=== PATIENT | male | born 1990 | race Caucasian/White ===

== ENCOUNTER 2018-08-02 18:23 | Emergency (ER) | payer BC ==
[~2018-08-02] VITALS: Ht 175.3 cm; Wt 83.0 kg
[2018-08-02 18:28] VITALS: BP 137/88
--- NOTE | 2018-08-02 19:14 | NUR ---
PA TO BEDSIDE FOR ASSESSMENT
[2018-08-02] MEDS ORDERED: METHOCARBAMOL 750 MG TABLET ONE (19:21)
[2018-08-02] MEDS ORDERED: KETOROLAC 30 MG/1 ML ONE (19:21)
--- NOTE | 2018-08-02 19:25 | NUR ---
PT MEDICATED AND TAKEN TO RAD
[2018-08-02] MEDS ORDERED: KETOROLAC 30 MG/1 ML IM ONE (19:30)
[2018-08-02] MEDS ORDERED: METHOCARBAMOL 750 MG TABLET PO ONE (19:30)
--- NOTE | 2018-08-02 20:28 | NUR ---
PA TO BEDSIDE TO UPDATE PT AND FAMILY ON POC
== END 2018-08-02 20:45 | disposition home or self-care (01) ==
LOC: ED 20:00
DX: S33.5XXA Sprain of ligaments of lumbar spine, initial encounter (principal); V29.9XXA Motorcycle rider (driver) (passenger) injured in unspecified traffic accident, initial encounter; Y93.89 Activity, other specified; Y92.410 Unspecified street and highway as the place of occurrence of the external cause; Y99.8 Other external cause status
CPT/HCPCS: 72072; 72110; 72220; 96372; 99283; J1885